=== PATIENT | male | born 1985 | race Caucasian/White ===

== ENCOUNTER 2018-01-25 11:44 | Emergency (ER) | payer OTHER ==
--- NOTE | 2018-01-25 12:37 | C.PDOC ---
History Of Present Illness FEVER SINCE 01/21. PS RETURNED FROM [place] 01/21, +EXPOSURE TO TYPHOID. TM 104. GEN MALAISE, +DIARRHEA, +CHILLS. NO ABD PAIN, VOMITING, URI SX. LAST TYLENOL THIS MORNING SAW PMD FOR SAME, S/P AZITHROMYCIN X 1 DOSE EXAM MILD DIST NONTOXIC HEENT NO PHOTOPHOBIA MMM NECK SUPPLE LUNGS CTA B/L NO W/R/R ABD NEG REMAINDER NEG Time Seen by Provider: 01/25/18 11:54 Chief Complaint (Nursing): Flu-like Symptoms History Per: Patient History/Exam Limitations: no limitations Onset/Duration Of Symptoms: Days Current Symptoms Are (Timing): Still Present Past Medical History Reviewed: Historical Data, Nursing Documentation, Vital Signs Vital Signs: Last Vital Signs Temp 98.2 F 01/25/18 15:05 Pulse 69 01/25/18 15:05 Resp 16 01/25/18 15:05 BP 100/65 01/25/18 15:05 Pulse Ox 100 01/25/18 15:05 Family History: States: No Known Family Hx - Social History Hx Alcohol Use: No Hx Substance Use: No - Immunization History Hx Tetanus Toxoid Vaccination: No Hx Influenza Vaccination: No Hx Pneumococcal Vaccination: No Review Of Systems Except As Marked, All Systems Reviewed And Found Negative. Constitutional: Positive for: Fever, Chills, Malaise Cardiovascular: Negative for: Chest Pain, Palpitations Respiratory: Negative for: Shortness of Breath Gastrointestinal: Positive for: Diarrhea. Negative for: Vomiting, Abdominal Pain Musculoskeletal: Negative for: Back Pain Skin: Negative for: Rash Neurological: Negative for: Weakness, Numbness, Headache, Dizziness Physical Exam - Physical Exam Appears: Non-toxic, No Acute Distress Skin: Normal Color, Warm, Dry, No Rash Head: Normacephalic Eye(s): bilateral: PERRL, EOMI (no photophobia) Nose: Normal Oral Mucosa: Moist Neck: Normal ROM Cardiovascular: Rhythm Regular, No Murmur Respiratory: Normal Breath Sounds, No Accessory Muscle Use, No Rales, No Rhonchi , No Stridor, No Wheezing Gastrointestinal/Abdominal: Soft, No Tenderness Extremity: Normal ROM Neurological/Psych: Oriented x3, Normal Speech ED Course And Treatment - Laboratory Results Result Diagrams: 01/25/18 13:02 01/25/18 13:02 O2 Sat by Pulse Oximetry: 99 (RA) Pulse Ox Interpretation: Normal - Radiology CXR: Interpreted by Me CXR Interpretation: Yes: No Acute Disease Progress - Re-Evaluation Re-evaluation Note: 01/25/18 15:50 FEELS BETTER NARD. NO NVD, UNABLE TO GIVE STOOL SAMPLE. DC FU PMD - Data Reviewed Data Reviewed: Lab, Diagnostic imaging Disposition Counseled Patient/Family Regarding: Studies Performed, Diagnosis, Need For Followup - Disposition Referrals: YOUR,PMD [Other] Disposition: HOME/ ROUTINE Disposition Time: 15:50 Condition: IMPROVED Instructions: Fever of Unknown Origin Forms: Goomeo (Spanish) - Clinical Impression Clinical Impression: Fever - Scribe Statement The provider has reviewed the documentation as recorded by the Scribe (Ashlyn Mitchell) All medical record entries made by the Scribe were at my direction and personally dictated by me. I have reviewed the chart and agree that the record accurately reflects my personal performance of the history, physical exam, medical decision making, and the department course for this patient. I have also personally directed, reviewed, and agree with the discharge instructions and disposition.
[2018-01-25] MEDS ORDERED: Sodium Chloride 0.9% 1,000 ML ONE ×2 (12:51→14:11)
--- NOTE | 2018-01-25 12:57 | RAD ---
HISTORY: fever COMPARISON: Cysts TECHNIQUE: Chest PA and lateral FINDINGS: LUNGS: No active pulmonary disease. PLEURA: No significant pleural effusion identified. No pneumothorax apparent. CARDIOVASCULAR: Normal. OSSEOUS STRUCTURES: No significant abnormalities. VISUALIZED UPPER ABDOMEN: Normal. OTHER FINDINGS: None. IMPRESSION: No active disease.
[2018-01-25 13:12] LABS: BASO % 0.7 % (0.0-2.0); EOS % 0.3 % (0.0-4.0); HEMOGLOBIN 13.3 g/dL (12.0-18.0); LYMPH # 1.5 K/uL (1.0-4.3); LYMPH % 29.4 % (20.0-40.0); MEAN CELL VOLUME 82.4 fL (80.0-94.0); MEAN CORPUSCULAR HEMOGLOBIN 28.1 pg (27.0-31.0); MEAN CORPUSCULAR HGB CONC 34.1 g/dL (33.0-37.0); MEAN PLATELET VOLUME 10.5 fL (7.2-11.7); MONO # 0.5 K/uL (0.0-0.8); MONO % 8.9 % (0.0-10.0); NEUT # 3.1 K/uL (1.8-7.0); NEUT % 60.7 % (50.0-75.0); RBC 4.75 Mil/uL (4.40-5.90); RED CELL DISTRIBUTION WIDTH 13.5 % (11.5-14.5); WHITE BLOOD COUNT 5.2 K/uL (4.8-10.8)
[2018-01-25 13:21] LABS: PLATELET COUNT 124 K/uL (130-400)
[2018-01-25 13:26] LABS: BLOOD UREA NITROGEN 9 mg/dL (9-20); CALCIUM 8.5 mg/dl (8.6-10.4); GFR AFRICAN-AMERICAN > 60; GFR NON-AFRICAN AMERICAN > 60
[2018-01-25 13:27] LABS: URINE BILIRUBIN NEGATIVE (NEGATIVE); URINE CLARITY Clear (Clear); URINE COLOR Straw (YELLOW); URINE GLUCOSE (UA) NORMAL (Normal); URINE LEUKOCYTE ESTERASE NEG Leu/uL (Negative); URINE PROTEIN NEGATIVE (NEGATIVE); URINE UROBILINOGEN NORMAL mg/dL (0.2-1.0)
[2018-01-25 13:39] LABS: URINE BLOOD 1+ (NEGATIVE)
[2018-01-25] MEDS ORDERED: Sodium Chloride 0.9% 250 ML IV ONE (14:11)
[2018-01-25 15:01] LABS: INTRACELLULAR PARASITE NEGATIVE (NEGATIVE)
[2018-01-25 15:06] VITALS: BP 100/65; PULSE 69; RESP 16; TEMP 98.2
[2018-01-25 15:51] VITALS: O2SAT 99
== END 2018-01-25 16:00 | disposition home or self-care (01) ==
LOC: C.ER 11:44
DX: R50.9 Fever, unspecified (principal)
CPT/HCPCS: 71046; 80048; 81001; 85025; 87040; 87086; 87205; 87207; 87804; 96361; 96374; 99285; J1885; J7040

== ENCOUNTER 2018-01-28 18:28 | Inpatient (IN) | payer OTHER ==
--- NOTE | 2018-01-28 19:27 | C.PDOC ---
Time Seen by Provider: 01/28/18 19:27 Chief Complaint (Nursing): Abnormal Labs Past Medical History Vital Signs: Last Vital Signs Temp 98.2 F 01/28/18 18:53 Pulse 84 01/28/18 18:53 Resp 18 01/28/18 18:53 BP 123/83 01/28/18 18:53 Pulse Ox 99 01/28/18 18:53 - Social History Hx Alcohol Use: No Hx Substance Use: No - Immunization History Hx Tetanus Toxoid Vaccination: No Hx Influenza Vaccination: No Hx Pneumococcal Vaccination: No ED Course And Treatment O2 Sat by Pulse Oximetry: 99 Disposition Counseled Patient/Family Regarding: Studies Performed, Diagnosis - Disposition Disposition Time: 19:27
[2018-01-28] MEDS ORDERED: Sodium Chloride 0.9% 1,000 ML IV ONE (19:29)
--- NOTE | 2018-01-28 19:47 | C.PDOC ---
Patient is a 32 year old male with no past medical history, who presents to the ED as per PMD due to positive blood culture for salmonella. Patient was seen on the ED on 01/25/18 for symptoms of fever, chills and night sweats. Patient did admits to recent travel to [place]. During today's encounter, patient admits to diarrhea and persistent fever, chills, and night sweats but denies hematochezia , nausea, vomiting, chest pain, palpitations, SOB. (John Valladares) History Per: Patient History/Exam Limitations: no limitations Onset/Duration Of Symptoms: Days Current Symptoms Are (Timing): Still Present Reports Recently: Seen In ED Recent travel outside of the [place]: Yes Additional History Per: Patient <John Valladares - Last Filed: 01/28/18 20:00> <Ramin Noel - Last Filed: 01/28/18 21:32> Time Seen by Provider: 01/28/18 19:27 Chief Complaint (Nursing): Abnormal Labs Past Medical History Other Surgeries: Sinus Family History: States: [place], Hypertension - Social History Hx Alcohol Use: No Hx Substance Use: No - Immunization History Hx Tetanus Toxoid Vaccination: No Hx Influenza Vaccination: No Hx Pneumococcal Vaccination: No <John Valladares - Last Filed: 01/28/18 20:00> Vital Signs: Last Vital Signs Temp 98 F 01/28/18 20:45 Pulse 80 01/28/18 20:45 Resp 20 01/28/18 20:45 BP 120/80 01/28/18 20:45 Pulse Ox 98 01/28/18 20:45 Review Of Systems Constitutional: Positive for: Fever, Chills, Other (Night sweats) Eyes: Negative for: Pain ENT: Negative for: Ear Pain, Ear Discharge Cardiovascular: Negative for: Chest Pain, Palpitations, Orthopnea, Edema, Light Headedness Respiratory: Negative for: Cough, Shortness of Breath, Hemoptysis, SOB with Excertion, Wheezing Gastrointestinal: Positive for: Diarrhea. Negative for: Nausea, Vomiting, Abdominal Pain, Constipation, Hematochezia Genitourinary: Negative for: Hematuria, Rash Skin: Negative for: Rash, Lesions, Jaundice <John Valladares - Last Filed: 01/28/18 20:00> Physical Exam - Physical Exam Appears: No Acute Distress Skin: Normal Color Head: Atraumatic, Normacephalic Eye(s): bilateral: Normal Inspection, EOMI Chest: Symmetrical Cardiovascular: Rhythm Regular, No Murmur Respiratory: Normal Breath Sounds, No Decreased Breath Sounds, No Accessory Muscle Use, No Rales, No Rhonchi Gastrointestinal/Abdominal: Normal Exam, Bowel Sounds, Soft, No Tenderness, No Organomegaly, No Mass, No Distention, No Guarding Extremity: Normal ROM, No Tenderness, No Calf Tenderness Extremity: Bilateral: Atraumatic Neurological/Psych: Oriented x3, Normal Speech, Normal Cognition <John Valladares - Last Filed: 01/28/18 20:00> ED Course And Treatment O2 Sat by Pulse Oximetry: 99 <John Valladares - Last Filed: 01/28/18 20:00> - Laboratory Results Result Diagrams: 01/28/18 20:04 01/28/18 20:04 <Ramin Noel - Last Filed: 01/28/18 21:32> Medical Decision Making <John Valladares - Last Filed: 01/28/18 20:00> <Ramin Noel - Last Filed: 01/28/18 21:32> Medical Decision Making: Blood Culture (01/25/18): Positive Salmonella species (John Valladares) Case discussed with Dr. Brumfield at 20:00. Advised to order a dose of Ciproflaxin IV. (Ramin Noel) Disposition Discussed With : Denny Brumfield - Disposition Disposition Time: 20:01 <John Valladares - Last Filed: 01/28/18 20:00> <Ramin Noel - Last Filed: 01/28/18 21:32> - Disposition Disposition: HOSPITALIZED Condition: GOOD - Clinical Impression Clinical Impression: Bacteremia
[2018-01-28] MEDS ORDERED: Ciprofloxacin 400mg/200ml D5W 400 MG/200 ML BAG IVPB STA (19:52)
[2018-01-28 20:07] LABS: BASO % 0.8 % (0.0-2.0); EOS % 0.7 % (0.0-4.0); HEMOGLOBIN 13.8 g/dL (12.0-18.0); LYMPH # 2.2 K/uL (1.0-4.3); MEAN CELL VOLUME 82.5 fL (80.0-94.0); MEAN CORPUSCULAR HEMOGLOBIN 27.9 pg (27.0-31.0); MEAN CORPUSCULAR HGB CONC 33.9 g/dL (33.0-37.0); MEAN PLATELET VOLUME 10.1 fL (7.2-11.7); MONO # 0.7 K/uL (0.0-0.8); MONO % 10.9 % (0.0-10.0); NEUT # 3.1 K/uL (1.8-7.0); NEUT % 51.6 % (50.0-75.0); NRBC % 0.1 % (0.0-2.0); RBC 4.93 Mil/uL (4.40-5.90); RED CELL DISTRIBUTION WIDTH 13.8 % (11.5-14.5)
[2018-01-28 20:21] LABS: ALB/GLOB RATIO 1.1 (1.0-2.1); ALBUMIN 4.3 g/dL (3.5-5.0); ALT/SGPT 55 U/L (21-72); AST/SGOT 40 U/L (17-59); BLOOD UREA NITROGEN 10 mg/dL (9-20); GFR AFRICAN-AMERICAN > 60; GFR NON-AFRICAN AMERICAN > 60; LIPASE 264 U/L (23-300)
--- NOTE | 2018-01-28 23:06 | CP.PCM.HP ---
History of Present Illness - History of Present Illness History of Present Illness: CC: Abnormal labs HPI: Patient is a 32 year old male with no past medical history, who presents to the ED as per PMD due to positive blood culture for salmonella. Patient was seen on the ED on 01/25/18 for symptoms of fever, chills and night sweats. Patient did admits to recent travel to [place]. During today's encounter, patient admits to diarrhea and persistent fever, chills, and night sweats but denies hematochezia, nausea, vomiting, chest pain, palpitations, SOB. Past Patient History - Past Medical History & Family History Past Medical History?: No - Past Social History Smoking Status: Never Smoked - CARDIAC Hx Cardiac Disorders: No - PULMONARY Hx Respiratory Disorders: No - NEUROLOGICAL Hx Neurological Disorder: No - HEENT Hx HEENT Problems: No - RENAL Hx Chronic Kidney Disease: No - ENDOCRINE/METABOLIC Hx Endocrine Disorders: No - HEMATOLOGICAL/ONCOLOGICAL Hx Blood Disorders: No - INTEGUMENTARY Hx Dermatological Problems: No - MUSCULOSKELETAL/RHEUMATOLOGICAL Hx Musculoskeletal Disorders: No Hx Falls: No - GASTROINTESTINAL Hx Gastrointestinal Disorders: No - GENITOURINARY/GYNECOLOGICAL Hx Genitourinary Disorders: No - PSYCHIATRIC Hx Psychophysiologic Disorder: No Hx Substance Use: No - SURGICAL HISTORY Hx Surgeries: No - ANESTHESIA Hx Anesthesia: Yes Hx Anesthesia Reactions: No Hx Malignant Hyperthermia: No Has any member of the family had a problem w/ anesthesia?: No Meds Allergies/Adverse Reactions: Allergies Allergy/AdvReac Type Severity Reaction Status Date / Time No Known Allergies Allergy Verified 01/28/18 18:57 Results - Vital Signs Recent Vital Signs: Last Vital Signs Temp 98.0 F 01/28/18 21:04 Pulse 71 01/28/18 21:04 Resp 20 01/28/18 21:04 BP 101/63 01/28/18 21:04 Pulse Ox 98 01/28/18 21:04 - Labs Result Diagrams: 01/28/18 20:04 01/28/18 20:04 Labs: Laboratory Results - last 24 hr 01/28/18 01/28/18 20:04 20:04 WBC 6.0 RBC 4.93 Hgb 13.8 Hct 40.6 MCV 82.5 MCH 27.9 MCHC 33.9 RDW 13.8 Plt Count 129 L MPV 10.1 Neut % (Auto) 51.6 Lymph % (Auto) 36.0 [place] % (Auto) 10.9 H Eos % (Auto) 0.7 Baso % (Auto) 0.8 Neut # (Auto) 3.1 Lymph # (Auto) 2.2 [place] # (Auto) 0.7 Eos # (Auto) 0.0 Baso # (Auto) 0.0 Sodium 144 Potassium 4.2 Chloride 100 Carbon Dioxide 26 Anion Gap 22 H BUN 10 Creatinine 0.9 Est GFR ( Amer) > 60 Est GFR (Non-Af Amer) > 60 Random Glucose 91 Calcium 9.0 Total Bilirubin 0.4 AST 40 ALT 55 Alkaline Phosphatase 66 Total Protein 8.2 Albumin 4.3 Globulin 3.9 Albumin/Globulin Ratio 1.1 Lipase 264
[2018-01-28] MEDS ORDERED: Ciprofloxacin 400mg/200ml D5W 400 MG/200 ML BAG IVPB SCH (23:45)
[2018-01-29] MEDS ORDERED: Sodium Chloride 0.9% 1,000 ML IV ONE (04:48)
--- NOTE | 2018-01-29 08:12 | RAD ---
Chest x-ray single frontal view History: Abdominal pain. Comparison: 01/25/2018 Findings: No focal infiltrate or effusion. Heart size within normal limits. Impression: No focal infiltrate or effusion.
[2018-01-29] MEDS: Ciprofloxacin 400mg/200ml D5W 400 MG/200 ML BAG IVPB SCH ×2 (09:00→20:06)
--- NOTE | 2018-01-29 09:17 | US ---
Abdominal ultrasound History: Abdominal pain. Comparison: None available. Technique: Real-time sonography was performed through the abdomen. Findings: Liver: 15.2 centimeters in length. Normal echogenicity. Gallbladder: No calculi or sludge. Normal wall thickness of 2.1 millimeters. Negative sonographic Infante's sign. Common bile duct measures 3.5 millimeters, within normal limits. Limited visualization of the pancreas. Spleen measures 11.6 centimeters in length, within normal limits. Visualized aorta and IVC are preserved. Right kidney: 10.7 x 5.2 x 4.9 centimeters. No calculi or hydronephrosis. Left Kidney: 11.5 x 4.8 x 5.2 centimeters. No calculi or hydronephrosis. Impression: Unremarkable sonographic evaluation of the abdomen. Limited visualization of the pancreas.
[2018-01-29 11:09] LABS: BLOOD UREA NITROGEN 10 mg/dL (9-20); CALCIUM 8.5 mg/dl (8.6-10.4); GFR AFRICAN-AMERICAN > 60; GFR NON-AFRICAN AMERICAN > 60
[2018-01-29 11:17] LABS: HEMOGLOBIN 12.9 g/dL (12.0-18.0); MEAN CELL VOLUME 82.5 fL (80.0-94.0); MEAN CORPUSCULAR HEMOGLOBIN 27.5 pg (27.0-31.0); MEAN CORPUSCULAR HGB CONC 33.4 g/dL (33.0-37.0); MEAN PLATELET VOLUME 11.8 fL (7.2-11.7); RBC 4.69 Mil/uL (4.40-5.90); RED CELL DISTRIBUTION WIDTH 13.6 % (11.5-14.5); WHITE BLOOD COUNT 7.1 K/uL (4.8-10.8)
--- NOTE | 2018-01-29 12:36 | CP.PCM.CON ---
Past Patient History - Past Medical History & Family History Past Medical History?: No - Past Social History Smoking Status: Never Smoked - CARDIAC Hx Cardiac Disorders: No - PULMONARY Hx Respiratory Disorders: No - NEUROLOGICAL Hx Neurological Disorder: No - HEENT Hx HEENT Problems: No - RENAL Hx Chronic Kidney Disease: No - ENDOCRINE/METABOLIC Hx Endocrine Disorders: No - HEMATOLOGICAL/ONCOLOGICAL Hx Blood Disorders: No - INTEGUMENTARY Hx Dermatological Problems: No - MUSCULOSKELETAL/RHEUMATOLOGICAL Hx Musculoskeletal Disorders: No Hx Falls: No - GASTROINTESTINAL Hx Gastrointestinal Disorders: No - GENITOURINARY/GYNECOLOGICAL Hx Genitourinary Disorders: No - PSYCHIATRIC Hx Psychophysiologic Disorder: No Hx Substance Use: No - SURGICAL HISTORY Hx Surgeries: No - ANESTHESIA Hx Anesthesia: Yes Hx Anesthesia Reactions: No Hx Malignant Hyperthermia: No Has any member of the family had a problem w/ anesthesia?: No Meds Allergies/Adverse Reactions: Allergies Allergy/AdvReac Type Severity Reaction Status Date / Time No Known Allergies Allergy Verified 01/28/18 18:57 - Medications Medications: Current Medications Acetaminophen (Tylenol 325mg Tab) 650 mg PO Q6 PRN PRN Reason: Fever >100.4 F Last Admin: 01/29/18 04:52 Dose: 650 mg Ciprofloxacin (Cipro 400mg/200ml Dsw) 400 mg in 200 mls @ 133 mls/hr IVPB Q12H KEKE PRN Reason: Protocol Last Admin: 01/29/18 09:00 Dose: 133 mls/hr Results - Vital Signs Recent Vital Signs: Last Vital Signs Temp 99.3 F 01/29/18 07:00 Pulse 83 01/29/18 07:00 Resp 18 01/29/18 07:00 BP 109/70 01/29/18 07:00 Pulse Ox 99 01/29/18 07:00 - Labs Result Diagrams: 01/29/18 10:44 01/29/18 10:44 Labs: Laboratory Results - last 24 hr 01/28/18 01/28/18 01/29/18 20:04 20:04 04:58 WBC 6.0 RBC 4.93 Hgb 13.8 Hct 40.6 MCV 82.5 MCH 27.9 MCHC 33.9 RDW 13.8 Plt Count 129 L MPV 10.1 Neut % (Auto) 51.6 Lymph % (Auto) 36.0 [place] % (Auto) 10.9 H Eos % (Auto) 0.7 Baso % (Auto) 0.8 Neut # (Auto) 3.1 Lymph # (Auto) 2.2 [place] # (Auto) 0.7 Eos # (Auto) 0.0 Baso # (Auto) 0.0 Differential Comment Sodium 144 Potassium 4.2 Chloride 100 Carbon Dioxide 26 Anion Gap 22 H BUN 10 Creatinine 0.9 Est GFR ( Amer) > 60 Est GFR (Non-Af Amer) > 60 POC Glucose (mg/dL) 77 Random Glucose 91 Calcium 9.0 Total Bilirubin 0.4 AST 40 ALT 55 Alkaline Phosphatase 66 Total Protein 8.2 Albumin 4.3 Globulin 3.9 Albumin/Globulin Ratio 1.1 Lipase 264 01/29/18 01/29/18 10:44 10:44 WBC 7.1 RBC 4.69 Hgb 12.9 Hct 38.7 MCV 82.5 MCH 27.5 MCHC 33.4 RDW 13.6 Plt Count 112 L MPV 11.8 H Neut % (Auto) Lymph % (Auto) [place] % (Auto) Eos % (Auto) Baso % (Auto) Neut # (Auto) Lymph # (Auto) [place] # (Auto) Eos # (Auto) Baso # (Auto) Differential Comment Sodium 134 Potassium 3.9 Chloride 101 Carbon Dioxide 23 Anion Gap 14 BUN 10 Creatinine 0.9 Est GFR ( Amer) > 60 Est GFR (Non-Af Amer) > 60 POC Glucose (mg/dL) Random Glucose 122 H Calcium 8.5 L Total Bilirubin AST ALT Alkaline Phosphatase Total Protein Albumin Globulin Albumin/Globulin Ratio Lipase
--- NOTE | 2018-01-29 18:11 | CP.PCM.CON ---
History of Present Illness - History of Present Illness History of Present Illness: 32 year old male with no past medical history, who presents to the ED as per PMD due to positive blood culture for salmonella. Patient was seen on the ED on 01/25/18 for symptoms of fever, chills and night sweats. Patient did admits to recent travel to [place]. During today's encounter, patient admits to diarrhea and persistent fever, chills, and night sweats but denies hematochezia, nausea, vomiting, chest pain, palpitations, SOB. recent trip to [place] with symptoms upon return Review of Systems - Review of Systems All systems: reviewed and no additional remarkable complaints except - Constitutional Constitutional: As Per HPI - EENT Eyes: absent: As Per HPI, Blind Spots, Blurred Vision, Change in Vision, Decreased Night Vision, Diplopia, Discharge, Dry Eye, Exophthalmos, Floaters, Irritation, Itchy Eyes, Loss of Peripheral Vision, Pain, Photophobia, Requires Corrective Lenses, Sees Flashes, Spots in Vision, Tunnel Vision, Other Visual Disturbances, Loss of Vision, Other Ears: absent: As Per HPI, Decreased Hearing, Ear Discharge, Ear Pain, Tinnitus, Abnormal Hearing, Disequilibrium, Dizziness, Other Nose/Mouth/Throat: absent: As Per HPI, Epistaxis, Nasal Congestion, Nasal Discharge, Nasal Obstruction, Nasal Trauma, Nose Pain, Post Nasal Drip, Sinus Pain, Sinus Pressure, Bleeding Gums, Change in Voice, Dental Pain, Dry Mouth, Dysphagia, Halitosis, Hoarsness, Lip Swelling, Mouth Lesions, Mouth Pain, Odynophagia, Sore Throat, Throat Swelling, Tongue Swelling, Facial Pain, Neck Pain, Neck Mass, Other - Cardiovascular Cardiovascular: absent: As Per HPI, Acrocyanosis, Chest Pain, Chest Pain at Rest , Chest Pain with Activity, Claudication, Diaphoresis, Dyspnea, Dyspnea on Exertion, Edema, Irregular Heart Rhythm, Pain Radiating to Arm/Neck/Jaw, Leg Edema, Leg Ulcers, Lightheadedness, Orthopnea, Palpitations, Paroxysmal Nocturnal Dyspnea, Pedal Edema, Radiating Pain, Rapid Heart Rate, Slow Heart Rate, Syncope, Other - Respiratory Respiratory: absent: As Per HPI, Cough, Dyspnea, Hemoptysis, Dyspnea on Exertion , Wheezing, Snoring, Stridor, Pain on Inspiration, Chest Congestion, Excessive Mucous Production, Change in Mucous Color, Pain with Coughing, Other - Gastrointestinal Gastrointestinal: As Per HPI - Genitourinary Genitourinary: absent: As Per HPI, Change in Urinary Stream, Difficulty Urinating, Dysuria, Flank Pain, Hematuria, Pyuria, Nocturia, Urinary Incontinence, Urinary Frequency, Urinary Hesitance, Urinary Urgency, Voiding Freq/Small Amts, Freq UTI, Hx Renal/Bladder Calculi, Hx /Renal Surgery, Bladder Distension, Other - Integumentary Integumentary: absent: As Per HPI, Acne, Alopecia, Bleeding Lesions, Change in Hair, Change in Nails, Change in Pigmentation, Changing Lesions, Dry Skin, Erythema, Furuncle, Hirsutism, Lesions, New Lesions, Non-Healing Lesions, Photosensitivity, Pruritus, Rash, Skin Pain, Skin Ulcer, Sores, Striae, Swelling , Unusual Bruising, Wounds, Jaundice, Other - Neurological Neurological: absent: As Per HPI, Abnormal Gait, Abnormal Hearing, Abnormal Movements, Abnormal Speech, Behavioral Changes, Burning Sensations, Confusion, Convulsions, Disequilibrium, Dizziness, Numbness, Focal Weakness, Frequent Falls , Headaches, Lack of Coordination, Loss of Vision, Memory Loss, Paresthesias, Radicular Pain, Restless Legs, Sensory Deficit, Syncope, Tingling, Tremor, Vertigo, Weakness, Other Visual Disturbances, Other - Psychiatric Psychiatric: absent: As Per HPI, Abnormal Sleep Pattern, Anhedonia, Anxiety, Auditory Hallucinations, Behavioral Changes, Change in Appetite, Change in Libido, Confusion, Depression, Difficulty Concentrating, Hallucinations, Homicidal Ideation, Hopelessness, Irritability, Memory Loss, Mood Swings, Panic Attacks, Paranoia, Suicidal Ideation, Visual Hallucinations, Tactile Hallucinations, Other - Endocrine Endocrine: absent: As Per HPI, Change in Body Appearance, Change in Libido, Cold Intolorance, Deepening of Voice, Excessive Sweating, Fatigue, Flushing, Heat Intolorance, Increase in Ring/Shoe/Hat Size, Palpitations, Polydipsia, Polyphagia, Polyuria, Other - Hematologic/Lymphatic Hematologic: absent: As Per HPI, Easy Bleeding, Easy Bruising, Lymphadenopathy, Other Past Patient History - Past Medical History & Family History Past Medical History?: No - Past Social History Smoking Status: Never Smoked - CARDIAC Hx Cardiac Disorders: No - PULMONARY Hx Respiratory Disorders: No - NEUROLOGICAL Hx Neurological Disorder: No - HEENT Hx HEENT Problems: No - RENAL Hx Chronic Kidney Disease: No - ENDOCRINE/METABOLIC Hx Endocrine Disorders: No - HEMATOLOGICAL/ONCOLOGICAL Hx Blood Disorders: No - INTEGUMENTARY Hx Dermatological Problems: No - MUSCULOSKELETAL/RHEUMATOLOGICAL Hx Musculoskeletal Disorders: No Hx Falls: No - GASTROINTESTINAL Hx Gastrointestinal Disorders: No - GENITOURINARY/GYNECOLOGICAL Hx Genitourinary Disorders: No - PSYCHIATRIC Hx Psychophysiologic Disorder: No Hx Substance Use: No - SURGICAL HISTORY Hx Surgeries: No - ANESTHESIA Hx Anesthesia: Yes Hx Anesthesia Reactions: No Hx Malignant Hyperthermia: No Has any member of the family had a problem w/ anesthesia?: No Meds Allergies/Adverse Reactions: Allergies Allergy/AdvReac Type Severity Reaction Status Date / Time No Known Allergies Allergy Verified 01/28/18 18:57 - Medications Medications: Current Medications Acetaminophen (Tylenol 325mg Tab) 650 mg PO Q6 PRN PRN Reason: Fever >100.4 F Last Admin: 01/29/18 14:58 Dose: 650 mg Ciprofloxacin (Cipro 400mg/200ml Dsw) 400 mg in 200 mls @ 133 mls/hr IVPB Q12H KEKE PRN Reason: Protocol Last Admin: 01/29/18 09:00 Dose: 133 mls/hr Physical Exam - Constitutional Appears: No Acute Distress - Head Exam Head Exam: ATRAUMATIC, NORMOCEPHALIC - Eye Exam Eye Exam: PERRL. absent: Scleral icterus - ENT Exam ENT Exam: Mucous Membranes Dry, Normal External Ear Exam - Neck Exam Neck exam: Negative for: Lymphadenopathy - Respiratory Exam Respiratory Exam: Decreased Breath Sounds, Clear to Auscultation Bilateral - Cardiovascular Exam Cardiovascular Exam: REGULAR RHYTHM, +S1, +S2 - GI/Abdominal Exam GI & Abdominal Exam: Diminished Bowel Sounds, Guarding - Rectal Exam Rectal Exam: Deferred - Exam Exam: NORMAL INSPECTION - Extremities Exam Extremities exam: Negative for: pedal edema - Back Exam Back exam: absent: CVA tenderness (L), CVA tenderness (R) - Neurological Exam Neurological exam: Alert, CN II-XII Intact, Oriented x3, Reflexes Normal - Psychiatric Exam Psychiatric exam: Normal Mood - Skin Skin Exam: Dry Results - Vital Signs Recent Vital Signs: Last Vital Signs Temp 100.1 F H 01/29/18 15:00 Pulse 89 01/29/18 15:00 Resp 20 01/29/18 15:00 BP 103/64 01/29/18 15:00 Pulse Ox 96 01/29/18 15:00 - Labs Result Diagrams: 01/29/18 10:44 01/29/18 10:44 Labs: Laboratory Results - last 24 hr 01/28/18 01/28/18 01/29/18 20:04 20:04 04:58 WBC 6.0 RBC 4.93 Hgb 13.8 Hct 40.6 MCV 82.5 MCH 27.9 MCHC 33.9 RDW 13.8 Plt Count 129 L MPV 10.1 Neut % (Auto) 51.6 Lymph % (Auto) 36.0 [place] % (Auto) 10.9 H Eos % (Auto) 0.7 Baso % (Auto) 0.8 Neut # (Auto) 3.1 Lymph # (Auto) 2.2 [place] # (Auto) 0.7 Eos # (Auto) 0.0 Baso # (Auto) 0.0 Differential Comment Sodium 144 Potassium 4.2 Chloride 100 Carbon Dioxide 26 Anion Gap 22 H BUN 10 Creatinine 0.9 Est GFR ( Amer) > 60 Est GFR (Non-Af Amer) > 60 POC Glucose (mg/dL) 77 Random Glucose 91 Calcium 9.0 Total Bilirubin 0.4 AST 40 ALT 55 Alkaline Phosphatase 66 Total Protein 8.2 Albumin 4.3 Globulin 3.9 Albumin/Globulin Ratio 1.1 Lipase 264 01/29/18 01/29/18 10:44 10:44 WBC 7.1 RBC 4.69 Hgb 12.9 Hct 38.7 MCV 82.5 MCH 27.5 MCHC 33.4 RDW 13.6 Plt Count 112 L MPV 11.8 H Neut % (Auto) Lymph % (Auto) [place] % (Auto) Eos % (Auto) Baso % (Auto) Neut # (Auto) Lymph # (Auto) [place] # (Auto) Eos # (Auto) Baso # (Auto) Differential Comment Sodium 134 Potassium 3.9 Chloride 101 Carbon Dioxide 23 Anion Gap 14 BUN 10 Creatinine 0.9 Est GFR ( Amer) > 60 Est GFR (Non-Af Amer) > 60 POC Glucose (mg/dL) Random Glucose 122 H Calcium 8.5 L Total Bilirubin AST ALT Alkaline Phosphatase Total Protein Albumin Globulin Albumin/Globulin Ratio Lipase Assessment & Plan (1) Salmonellosis Status: Acute (2) Salmonellosis Status: Acute (3) Bacteremia Status: Acute (4) Fever Status: Acute - Assessment and Plan (Free Text) Assessment: cont iv rx screen for HIV
--- NOTE | 2018-01-29 23:36 | CP.PCM.PN ---
Subjective - Date & Time of Evaluation Date of Evaluation: 01/29/18 Time of Evaluation: 17:00 - Subjective Subjective: patient admits to diarrhea and persistent fever, chills, and night sweats but denies hematochezia, nausea, vomiting, chest pain, palpitations, SOB. recent trip to [place] with symptoms upon return Objective - Vital Signs/Intake and Output Vital Signs (last 24 hours): Temp Pulse Resp BP Pulse Ox 98.9 F 89 20 103/64 96 01/29/18 15:58 01/29/18 15:00 01/29/18 15:00 01/29/18 15:00 01/29/18 15:00 Intake and Output: 01/29/18 01/30/18 18:59 06:59 Intake Total 400 Balance 400 - Medications Medications: Current Medications Acetaminophen (Tylenol 325mg Tab) 650 mg PO Q6 PRN PRN Reason: Fever >100.4 F Last Admin: 01/29/18 14:58 Dose: 650 mg Ciprofloxacin (Cipro 400mg/200ml Dsw) 400 mg in 200 mls @ 133 mls/hr IVPB Q12H KEKE PRN Reason: Protocol Last Admin: 01/29/18 20:06 Dose: 133 mls/hr - Labs Labs: 01/29/18 10:44 01/29/18 10:44
[2018-01-30 07:55] LABS: HEMOGLOBIN 14.2 g/dL (12.0-18.0); MEAN CORPUSCULAR HEMOGLOBIN 27.9 pg (27.0-31.0); MEAN CORPUSCULAR HGB CONC 34.1 g/dL (33.0-37.0); MEAN PLATELET VOLUME 10.4 fL (7.2-11.7); RBC 5.07 Mil/uL (4.40-5.90); RED CELL DISTRIBUTION WIDTH 13.8 % (11.5-14.5); WHITE BLOOD COUNT 6.5 K/uL (4.8-10.8)
[2018-01-30 08:18] LABS: BLOOD UREA NITROGEN 13 mg/dL (9-20); CALCIUM 8.9 mg/dl (8.6-10.4); GFR AFRICAN-AMERICAN > 60; GFR NON-AFRICAN AMERICAN > 60
[2018-01-30] MEDS: Ciprofloxacin 400mg/200ml D5W 400 MG/200 ML BAG IVPB SCH ×2 (08:19→19:12)
[2018-01-30 16:12] VITALS: O2SAT 98
--- NOTE | 2018-01-30 23:12 | CP.PCM.PN ---
Subjective - Date & Time of Evaluation Date of Evaluation: 01/30/18 Time of Evaluation: 16:20 - Subjective Subjective: pt seen and examined today Objective - Vital Signs/Intake and Output Vital Signs (last 24 hours): Temp Pulse Resp BP Pulse Ox 99.5 F 98 H 20 111/69 98 01/30/18 17:14 01/30/18 16:12 01/30/18 16:12 01/30/18 16:12 01/30/18 16:12 Intake and Output: 01/30/18 01/31/18 18:59 06:59 Intake Total 680 700 Balance 680 700 - Medications Medications: Current Medications Acetaminophen (Tylenol 325mg Tab) 650 mg PO Q6 PRN PRN Reason: Fever >100.4 F Last Admin: 01/30/18 16:14 Dose: 650 mg Ciprofloxacin (Cipro 400mg/200ml Dsw) 400 mg in 200 mls @ 133 mls/hr IVPB Q12H KEKE PRN Reason: Protocol Last Admin: 01/30/18 19:12 Dose: 133 mls/hr - Labs Labs: 01/30/18 07:48 01/30/18 07:48
[2018-01-31 00:57] VITALS: RESP 18
[2018-01-31 08:25] LABS: BASO % 0.3 % (0.0-2.0); EOS # 0.1 K/uL (0.0-0.7); EOS % 0.9 % (0.0-4.0); HEMOGLOBIN 13.8 g/dL (12.0-18.0); LYMPH # 2.3 K/uL (1.0-4.3); LYMPH % 30.5 % (20.0-40.0); MEAN CELL VOLUME 81.9 fL (80.0-94.0); MEAN CORPUSCULAR HGB CONC 34.2 g/dL (33.0-37.0); MEAN PLATELET VOLUME 10.1 fL (7.2-11.7); MONO # 0.8 K/uL (0.0-0.8); MONO % 11.2 % (0.0-10.0); NEUT # 4.3 K/uL (1.8-7.0); NEUT % 57.1 % (50.0-75.0); NRBC % 0.1 % (0.0-2.0); RBC 4.91 Mil/uL (4.40-5.90); RED CELL DISTRIBUTION WIDTH 13.9 % (11.5-14.5); WHITE BLOOD COUNT 7.5 K/uL (4.8-10.8)
[2018-01-31] MEDS: Ciprofloxacin 400mg/200ml D5W 400 MG/200 ML BAG IVPB SCH (08:27)
[2018-01-31 08:52] LABS: ALB/GLOB RATIO 1.1 (1.0-2.1); ALT/SGPT 53 U/L (21-72); AST/SGOT 36 U/L (17-59); BLOOD UREA NITROGEN 13 mg/dL (9-20); CALCIUM 8.8 mg/dl (8.6-10.4); GFR AFRICAN-AMERICAN > 60; GFR NON-AFRICAN AMERICAN > 60
--- NOTE | 2018-01-31 16:01 | CP.PCM.PN ---
Subjective - Date & Time of Evaluation Date of Evaluation: 01/31/18 Time of Evaluation: 16:00 - Subjective Subjective: PATIENT IS ADMITTED FOR BACTEREMIA DENIES CHEST PAIN OR SOB/ NAUSEA OR VOMITING NO SIGN OF DISTRESS NOTED Objective - Vital Signs/Intake and Output Vital Signs (last 24 hours): Temp Pulse Resp BP Pulse Ox 98.3 F 90 18 105/66 98 01/31/18 07:20 01/31/18 07:20 01/31/18 07:20 01/31/18 07:20 01/31/18 07:20 Intake and Output: 01/31/18 01/31/18 06:59 18:59 Intake Total 700 Balance 700 - Medications Medications: Current Medications Acetaminophen (Tylenol 325mg Tab) 650 mg PO Q6 PRN PRN Reason: Fever >100.4 F Last Admin: 01/31/18 13:08 Dose: 650 mg Ciprofloxacin (Cipro 400mg/200ml Dsw) 400 mg in 200 mls @ 133 mls/hr IVPB Q12H KEKE PRN Reason: Protocol Last Admin: 01/31/18 08:27 Dose: 133 mls/hr - Labs Labs: 01/31/18 08:19 01/31/18 08:19 Assessment and Plan - Assessment and Plan (Free Text) Assessment: PATIENT SEEN AND EXAMINED BLODD CULT IS NEG PATIENT IS AFEBRILE/ NORMAL LAB WORK VITALS SIGN ARE STABLE DISCUSS WITH DR CHARLES WHO AGREE AND DC PATIENT FOLLOW UP WITH DR CHARLES IN 1-2 WEEK AT HIS OFFICE ---CALL FOR APPOINTMENT FOLLOW UP WITH DR BANDA 1-2 WEEK AT HIS OFFICE ---CALL FOR APPOINTMENT CONTINUE ALL YOUR HOME MEDICATION NEW PRESCRIPTION GIVEN CIPRO 400 MG BY MOUTH TWICE A DAY FOR 14 DAYS ACTIVITY TOLERATED CALL DR CHARLES OR GO TO THE EMERGENCY ROOM IF SYMPTOMS RETURN OR WORSENING DISCUSS WITH PATIENT WHO AGREE AND VERBALIZED UNDERSTANDING
[2018-01-31 16:48] VITALS: BP 110/71; PULSE 80; TEMP 98.4
--- NOTE | 2018-01-31 23:01 | CP.PCM.DIS ---
Provider - Provider Date of Admission: 01/28/18 19:55 Attending physician: Denny Brumfield MD Hospital Course - Lab Results Lab Results: Micro Results 01/30/18 07:22 Blood-Venous Blood Culture - Preliminary NO GROWTH AFTER 24 HOURS 01/30/18 06:44 Blood-Venous Blood Culture - Preliminary NO GROWTH AFTER 24 HOURS Most Recent Lab Values WBC 7.5 K/uL (4.8-10.8) 01/31/18 08:19 RBC 4.91 Mil/uL (4.40-5.90) 01/31/18 08:19 Hgb 13.8 g/dL (12.0-18.0) 01/31/18 08:19 Hct 40.3 % (35.0-51.0) 01/31/18 08:19 MCV 81.9 fL (80.0-94.0) 01/31/18 08:19 MCH 28.0 pg (27.0-31.0) 01/31/18 08:19 MCHC 34.2 g/dL (33.0-37.0) 01/31/18 08:19 RDW 13.9 % (11.5-14.5) 01/31/18 08:19 Plt Count 157 K/uL (130-400) 01/31/18 08:19 MPV 10.1 fL (7.2-11.7) 01/31/18 08:19 Neut % (Auto) 57.1 % (50.0-75.0) 01/31/18 08:19 Lymph % (Auto) 30.5 % (20.0-40.0) 01/31/18 08:19 Franklin % (Auto) 11.2 % (0.0-10.0) H 01/31/18 08:19 Eos % (Auto) 0.9 % (0.0-4.0) 01/31/18 08:19 Baso % (Auto) 0.3 % (0.0-2.0) 01/31/18 08:19 Neut # (Auto) 4.3 K/uL (1.8-7.0) 01/31/18 08:19 Lymph # (Auto) 2.3 K/uL (1.0-4.3) 01/31/18 08:19 Franklin # (Auto) 0.8 K/uL (0.0-0.8) 01/31/18 08:19 Eos # (Auto) 0.1 K/uL (0.0-0.7) 01/31/18 08:19 Baso # (Auto) 0.0 K/uL (0.0-0.2) 01/31/18 08:19 Differential Comment 01/29/18 10:44 Sodium 141 mmol/L (132-148) 01/31/18 08:19 Potassium 4.7 mmol/L (3.6-5.2) 01/31/18 08:19 Chloride 102 mmol/L (98-107) 01/31/18 08:19 Carbon Dioxide 24 mmol/L (22-30) 01/31/18 08:19 Anion Gap 20 (10-20) 01/31/18 08:19 BUN 13 mg/dL (9-20) 01/31/18 08:19 Creatinine 0.9 mg/dL (0.8-1.5) 01/31/18 08:19 Est GFR ( Amer) > 60 01/31/18 08:19 Est GFR (Non-Af Amer) > 60 01/31/18 08:19 POC Glucose (mg/dL) 77 mg/dL (65-110) 01/29/18 04:58 Random Glucose 89 mg/dL (75-110) 01/31/18 08:19 Calcium 8.8 mg/dl (8.6-10.4) 01/31/18 08:19 Total Bilirubin 0.5 mg/dL (0.2-1.3) 01/31/18 08:19 AST 36 U/L (17-59) 01/31/18 08:19 ALT 53 U/L (21-72) 01/31/18 08:19 Alkaline Phosphatase 61 U/L (38-126) 01/31/18 08:19 Total Protein 7.6 g/dL (6.3-8.3) 01/31/18 08:19 Albumin 4.0 g/dL (3.5-5.0) 01/31/18 08:19 Globulin 3.6 gm/dL (2.2-3.9) 01/31/18 08:19 Albumin/Globulin Ratio 1.1 (1.0-2.1) 01/31/18 08:19 Lipase 264 U/L (23-300) 01/28/18 20:04 Stool Leukocytes, Qual Negative (NEGATIVE) 01/29/18 06:00 - Hospital Course Hospital Course: PT IS STABLE FOR DISCHARGE, FOLLOW UP WITH ME IN 1-2 WEEK AT HIS OFFICE ---CALL FOR APPOINTMENT FOLLOW UP WITH DR BANDA 1-2 WEEK AT HIS OFFICE ---CALL FOR APPOINTMENT CONTINUE ALL YOUR HOME MEDICATION NEW PRESCRIPTION GIVEN CIPRO 400 MG BY MOUTH TWICE A DAY FOR 14 DAYS ACTIVITY TOLERATED Discharge Exam - Head Exam Head Exam: ATRAUMATIC, NORMOCEPHALIC Discharge Plan - Follow Up Plan Condition: GOOD Disposition: HOME/ ROUTINE Instructions: Ciprofloxacin (Systemic), Salmonellosis (Salmonella Infection) ( DC), Sepsis (DC) Additional Instructions: FOLLOW UP WITH DR BRUMFIELD IN 1-2 WEEK AT HIS OFFICE ---CALL FOR APPOINTMENT FOLLOW UP WITH DR BANDA 1-2 WEEK AT HIS OFFICE ---CALL FOR APPOINTMENT CONTINUE ALL YOUR HOME MEDICATION NEW PRESCRIPTION GIVEN CIPRO 400 MG BY MOUTH TWICE A DAY FOR 14 DAYS ACTIVITY TOLERATED CALL DR BRUMFIELD OR GO TO THE EMERGENCY ROOM IF SYMPTOMS RETURN OR WORSENING Referrals: Denny Brumfield MD [Staff Provider] - Alo Banda MD [Staff Provider] -
== END 2018-01-31 16:58 | disposition home or self-care (01) | DRG 872 ==
LOC: C.ER 18:28 → C.5S 19:55 → C.9E 19:55 → C.5S 01-29 10:32
PROVIDERS: ADMIT Internal Medicine; ATTEND Internal Medicine
DX: A02.1 Salmonella sepsis (principal); A02.0 Salmonella enteritis